=== PATIENT | male | born 1955 | race Caucasian/White ===

== ENCOUNTER → 2020-08-02 | Outpatient (CLI) | payer OTHER | LOC: LAB EV 14:23 → LAB 14:23 → LAB SHORT 14:23 | DX: R06.00 Dyspnea, unspecified (principal) | CPT/HCPCS: 83880 ==

== ENCOUNTER 2021-08-28 19:49 | Inpatient (IN) | payer OTHER ==
[~2021-08-28] VITALS: Ht 167.6 cm; Wt 102.7 kg
[2021-08-28 20:21] LABS: BASOPHILS ABSOLUTE AUTO 0.04 K/mm3 (0.00-0.23); BASOPHILS PERCENT AUTO 0 % (0-2); EOSINOPHILS ABSOLUTE AUTO 0.03 K/mm3 (0.00-0.68); EOSINOPHILS PERCENT AUTO 0 % (0-6); Hematocrit 37.3 % (37.0-53.0); Hemoglobin 12.5 g/dL (13.5-17.5); IMMATURE GRAN ABSOLUTE AUTO 0.11 K/mm3 (0.00-0.10); IMMATURE GRAN PERCENT AUTO 1 % (0-1); LYMPHOCYTES ABSOLUTE AUTO 0.86 K/mm3 (0.84-5.20); LYMPHOCYTES PERCENT AUTO 7 % (21-46); MONOCYTES ABSOLUTE AUTO 0.94 K/mm3 (0.16-1.47); MONOCYTES PERCENT AUTO 7 % (4-13); Mean Corpuscular HGB 30.6 pg (26.0-34.0); Mean Corpuscular HGB Conc 33.5 g/dL (31.5-36.5); Mean Corpuscular Volume 91 fL (80-100); NEUTROPHILS ABSOLUTE AUTO 10.65 K/mm3 (1.96-9.15); NEUTROPHILS PERCENT AUTO 84 % (41-73); Platelet Count 178 K/mm3 (150-400); RDW Coefficient Variation 14.6 % (11.7-14.2); Red Blood Cell Count 4.09 M/mm3 (4.30-5.90); White Blood Cell Count 12.63 K/mm3 (4.00-11.30)
[2021-08-28 20:43] LABS: Albumin, Blood 3.6 g/dL (3.4-5.0); Albumin/Globulin Ratio 0.8 (0.8-1.8); Bilirubin, Total 0.4 mg/dL (0.1-1.0); Bun/Creatinine Ratio 18.6 (12.0-20.0); Calcium, Blood 9.5 mg/dL (8.5-10.1); Creatinine, Blood 1.13 mg/dL (0.60-1.20); Globulin, Blood 4.3 g/dL (2.2-4.0); Potassium, Blood 4.1 mmol/L (3.5-5.5); Total Protein, Blood 7.9 g/dL (6.4-8.2)
[2021-08-29 01:32] LABS: Base Excess Venous -7.1 mmol/L; Bicarbonate Venous 18.4 mmol/L (24.0-30.0); PCO2 Venous 46.4 mmHg (38-42)
[2021-08-29 01:35] LABS: pH Blood Venous 7.25 (7.34-7.37)
[2021-08-29 02:37] LABS: Source, Urine Clean Catch
[2021-08-29 02:43] LABS: Bilirubin, Urine Neg (Neg); Blood, Urine 5+ (Neg); Glucose Qualitative, Urine Neg (Neg); Ketones, Urine 2+ (Neg); Leukocyte Esterase, Urine 1+ (Neg); Nitrite, Urine Pos (Neg); Protein, Urine 3+ (Neg); Urobilinogen, Urine NORM (Normal)
[2021-08-29] MEDS ORDERED: ALBU90OI INH (02:51)
[2021-08-29] MEDS ORDERED: ATOR40TA PO (02:52)
[2021-08-29] MEDS ORDERED: INCRUSE ELLIPTA INH (02:55)
[2021-08-29] MEDS ORDERED: LISI20 PO (02:55)
[2021-08-29] MEDS ORDERED: TAMS.4ER PO (02:56)
[2021-08-29 02:58] LABS: Appearance, Urine Hazy (Clear); Color, Urine Yellow (P-Yellow)
[2021-08-29] MEDS ORDERED: FLUTICASONE-SA1 EAC1 INH (02:58)
[2021-08-29 02:59] LABS: Amorphous Light (0-Heavy); Bacteria Many /hpf; Mucus Light (0-Heavy); Red Blood Cells, Urine 0-2 /hpf (0-2); Squamous Epithelial Cells Not Seen /hpf (Few); White Blood Cells, Urine 25-50 /hpf (0-5)
[2021-08-29 04:44] LABS: BASOPHILS ABSOLUTE AUTO 0.04 K/mm3 (0.00-0.23); BASOPHILS PERCENT AUTO 0 % (0-2); EOSINOPHILS PERCENT AUTO 0 % (0-6); Hematocrit 34.6 % (37.0-53.0); Hemoglobin 11.3 g/dL (13.5-17.5); Mean Corpuscular HGB 30.5 pg (26.0-34.0); Mean Corpuscular HGB Conc 32.7 g/dL (31.5-36.5); Mean Corpuscular Volume 94 fL (80-100); Mean Platelet Volume 10.9 fL (9.1-12.4); Platelet Count 143 K/mm3 (150-400); RDW Coefficient Variation 14.7 % (11.7-14.2); RDW Standard Deviation 50.4 fL (35.1-46.3); White Blood Cell Count 11.78 K/mm3 (4.00-11.30)
[2021-08-29 04:45] LABS: IMMATURE GRAN PERCENT AUTO 1 % (0-1); LYMPHOCYTES ABSOLUTE AUTO 1.41 K/mm3 (0.84-5.20); LYMPHOCYTES PERCENT AUTO 12 % (21-46); MONOCYTES ABSOLUTE AUTO 1.05 K/mm3 (0.16-1.47); MONOCYTES PERCENT AUTO 9 % (4-13); NEUTROPHILS ABSOLUTE AUTO 9.18 K/mm3 (1.96-9.15); NEUTROPHILS PERCENT AUTO 78 % (41-73)
[2021-08-29 05:02] LABS: Albumin/Globulin Ratio 0.8 (0.8-1.8); Bilirubin, Total 0.4 mg/dL (0.1-1.0); Bun/Creatinine Ratio 20.6 (12.0-20.0); Calcium, Blood 8.7 mg/dL (8.5-10.1); Creatinine, Blood 0.92 mg/dL (0.60-1.20); Potassium, Blood 3.9 mmol/L (3.5-5.5)
--- NOTE | 2021-08-29 05:35 | NUR ---
NEW ADMISSION FROM ER. PT REPORTS BEING VERY SOB W/EXERTION AND WHEN LAYING DOWN. PT ON 4L NC WITH GOOD SATURATIONS. PT WITH EX.WHEEZING HOWEVER CLEARED POST BREATHING TX. PT REPORTS THAT HE HAD NO RESIDUAL FROM [facility] "YEARS AGO." PT STATES THAT IN THE PAST 3 DAYS HE HAS FALLEN TWICE AND BOTH TIMES HIT THE CEMENT HURTING THIS RIGHT ARM. HE STATES THAT PRIOR TO 3 DAYS AGO HE HAD GOOD ARM MOVEMENT AND FUNCTION EQUAL TO HIS LEFT ARM. PT ARM IS NOTED TO BE PAINFUL WHEN MOVED OR TOUCHED. PT ALSO NOTED WITH HR IN THE 120S SINCE ADMISSION TO FLOOR. PER ER REPORT PT HAD BEEN IN 117s WHICH WAS IMPROVED FROM 140s. PT ALSO NOTED WITH A WOUND TO HIS LEFT GREAT TOE AREA. PT HAD BANDAID AND ONCE REMOVED THERE WAS PUSS NOTED, OPEN WOUND WITH WHITE CENTER. AREA IS WARM TOUCH, RED AND SWOLLEN. PIC IN CHART. DR. OBRIEN NOTIFIED REGARDING PT RECENT FALL AND CHANGE IN ARM MOBITLIY, UA RESULTS AND WOUND TO LEFT FOOT. DR. FLEMING MADE AWARE OF PT HR AND PER MD NO INTERVENTION AT THIS TIME. PT REPORTS LIVING IN [place] HOWEVER DUE TO RECENT HEALTH DECLINE HE STATES HE HAS LOST HIS HOUSING DUE TO NO BEING GINNY TO WORK.
[2021-08-29 10:15] LABS: Bicarbonate Venous 20.8 mmol/L (24.0-30.0); PCO2 Venous 34.1 mmHg (38-42); pH Blood Venous 7.38 (7.34-7.37)
[2021-08-29 10:19] LABS: Influenza A, PCR NEGATIVE (NEGATIVE); Influenza B, PCR NEGATIVE (NEGATIVE); Resp Syncytial Virus, PCR NEGATIVE (NEGATIVE); SARS-Cov-2 (COVID-19) PCR, MMC NEGATIVE (NEGATIVE)
--- NOTE | 2021-08-29 18:04 | NUR ---
SHIFT SUMMARY PT A&O X4 AND IN PLEASENT MOOD T/O SHIFT. PAIN MEDICATED PER EMAR. SURGEON IN TO SEE PT THIS SHIFT, SPLINT NOW IN PLACE. TOLERATING PO INTAKE WELL @ THIS TIME. DR. CHO, AUDITING CLERK IN TO SEE PT @ THIS TIME-PLAN TO ASPIRATE WOUND ON LLE GREAT TOE. TELE IN PLACE, AFLUTTER. CALL LIGHT W/IN REACH. VSS.
[2021-08-30 05:12] LABS: BASOPHILS ABSOLUTE AUTO 0.03 K/mm3 (0.00-0.23); BASOPHILS PERCENT AUTO 0 % (0-2); EOSINOPHILS ABSOLUTE AUTO 0.09 K/mm3 (0.00-0.68); EOSINOPHILS PERCENT AUTO 1 % (0-6); Hematocrit 31.4 % (37.0-53.0); Hemoglobin 10.3 g/dL (13.5-17.5); IMMATURE GRAN ABSOLUTE AUTO 0.05 K/mm3 (0.00-0.10); IMMATURE GRAN PERCENT AUTO 1 % (0-1); LYMPHOCYTES ABSOLUTE AUTO 1.37 K/mm3 (0.84-5.20); LYMPHOCYTES PERCENT AUTO 15 % (21-46); MONOCYTES PERCENT AUTO 10 % (4-13); Mean Corpuscular HGB 30.3 pg (26.0-34.0); Mean Corpuscular HGB Conc 32.8 g/dL (31.5-36.5); Mean Corpuscular Volume 92 fL (80-100); Mean Platelet Volume 10.6 fL (9.1-12.4); NEUTROPHILS ABSOLUTE AUTO 6.65 K/mm3 (1.96-9.15); NEUTROPHILS PERCENT AUTO 73 % (41-73); Platelet Count 138 K/mm3 (150-400); RDW Coefficient Variation 14.6 % (11.7-14.2); RDW Standard Deviation 49.3 fL (35.1-46.3); White Blood Cell Count 9.09 K/mm3 (4.00-11.30)
[2021-08-30 05:47] LABS: Albumin, Blood 2.6 g/dL (3.4-5.0); Albumin/Globulin Ratio 0.7 (0.8-1.8); Bilirubin, Total 0.4 mg/dL (0.1-1.0); Calcium, Blood 8.1 mg/dL (8.5-10.1); Creatinine, Blood 0.69 mg/dL (0.60-1.20); Globulin, Blood 3.9 g/dL (2.2-4.0); Potassium, Blood 3.6 mmol/L (3.5-5.5); Total Protein, Blood 6.5 g/dL (6.4-8.2); Uric Acid, Blood 6.8 mg/dL (3.5-7.2)
--- NOTE | 2021-08-30 06:28 | NUR ---
PT OXYGEN NOTED TO BE 82% WHILE ASLEEP ON RA. PT PLACED ON 2L NC WITH GOOD SATS MID 90s. PT WOUND TO LEFT FOOD DRAINING PUSS AFTER SEEN BY EXPLOSIVE SPECIALIST AND CHANGED NEEDED. CALL FROM TELE MONITOR STATING PT HAD 18 BEATS OF VTACH. AT THIS TIME WHEN TO ASSESS PT AND PT ONLY REPORTED DISCOMFORT FROM RIBS DUE TO RECENT FALL DENIED CHEST PAIN. PT STATING HIS IRREGULAR HR COULD BE FROM PHLEBOTOMY AT THIS TIME LAB WAS TRYING TO COLLECT LABS AND WAS NEEDING MORE THAN ONE STICK. MADE AWARE WITH ORDER FOR MG LAB DRAW. MG THIS MORNING 1.5 MD NOTIFIED WITH ORDER PER APR.
[2021-08-30 16:44] LABS: Vancomycin, Trough 15.8 ug/mL (5.0-10.0)
--- NOTE | 2021-08-30 18:24 | NUR ---
SHIFT SUMMARY PT A&O X4 AND IN PLEASENT MOOD T/O SHIFT. PT IV INFILTRATED-POWER GLIDE PLACED SHERMAN. LLE FOOT ULCER DRESSED TODAY, MONITORING FOR S/S OF INFECTION. PULSE PRESENT IN LUIS, SPLINT IN PLACE W/ SANDIE FOR WRIST FX. PAIN MEDICATED PER EMAR. CALL LIGHT W/IN REACH. VSS. TOLERATING PO INTAKE.
[2021-08-31 06:27] LABS: BASOPHILS ABSOLUTE AUTO 0.05 K/mm3 (0.00-0.23); BASOPHILS PERCENT AUTO 1 % (0-2); EOSINOPHILS PERCENT AUTO 5 % (0-6); Hematocrit 33.3 % (37.0-53.0); IMMATURE GRAN ABSOLUTE AUTO 0.03 K/mm3 (0.00-0.10); IMMATURE GRAN PERCENT AUTO 1 % (0-1); LYMPHOCYTES ABSOLUTE AUTO 1.01 K/mm3 (0.84-5.20); LYMPHOCYTES PERCENT AUTO 16 % (21-46); MONOCYTES ABSOLUTE AUTO 0.65 K/mm3 (0.16-1.47); MONOCYTES PERCENT AUTO 10 % (4-13); Mean Corpuscular HGB 30.6 pg (26.0-34.0); Mean Corpuscular Volume 93 fL (80-100); Mean Platelet Volume 10.7 fL (9.1-12.4); NEUTROPHILS ABSOLUTE AUTO 4.19 K/mm3 (1.96-9.15); NEUTROPHILS PERCENT AUTO 67 % (41-73); Platelet Count 161 K/mm3 (150-400); RDW Coefficient Variation 14.6 % (11.7-14.2); RDW Standard Deviation 49.1 fL (35.1-46.3); White Blood Cell Count 6.23 K/mm3 (4.00-11.30)
[2021-08-31 06:58] LABS: Albumin, Blood 2.8 g/dL (3.4-5.0); Albumin/Globulin Ratio 0.6 (0.8-1.8); Bilirubin, Total 0.5 mg/dL (0.1-1.0); Bun/Creatinine Ratio 17.8 (12.0-20.0); Calcium, Blood 8.8 mg/dL (8.5-10.1); Creatinine, Blood 0.68 mg/dL (0.60-1.20); Globulin, Blood 4.4 g/dL (2.2-4.0); Potassium, Blood 4.1 mmol/L (3.5-5.5); Total Protein, Blood 7.2 g/dL (6.4-8.2)
--- NOTE | 2021-08-31 07:14 | NUR ---
PT C/O PAIN NOT RELIEVED BY CURRENT REGIMEN. NOTIFIED WITH ORDERS PER APR. NO OTHER CHANGES NOTED THIS SHIFT.
--- NOTE | 2021-08-31 18:31 | NUR ---
DAYSHIFT SUMMARY Patient doing well today, worked with therapy, PT recommending rehab/SNF. PT instructed patient to use kamari-walker for ambulating. Changed dressing on left foot, moderate purulent drainage noted. This evening patient reported that he saw a cat in his room, pt told this RN that he has never used meth, and doesn't know why he would be "seeing cats". Vitals stable, IV ABX therapy admininsted. Tylenol & PRN oxycodone effective for pain mangement. Pain c/o pain in right arms & right ribs.
--- NOTE | 2021-09-01 02:59 | NUR ---
HEALTH AND SAFETY CONSULTANT SUMMARY REMAINS ON MED TELE, SINUS TACH, IN THE LOW TO MID HUNDREDS DEPENDING IF PT IS OUT OF BED AMBULATING. IV ANTIBIOTICS INFUSING ORDERED. HAS BEEN RESTING QUIETLY WITH OCCASIONAL INTERRUPTION. SLIGHTLY ELEVATED TEMP OTHERWISE VSS. ISOLATION PRECAUTIONS CONTINUE. CALL LIGHT IN REACH. RIGHT ARM CAST INTACT.
[2021-09-01 09:23] LABS: BASOPHILS ABSOLUTE AUTO 0.05 K/mm3 (0.00-0.23); BASOPHILS PERCENT AUTO 1 % (0-2); EOSINOPHILS ABSOLUTE AUTO 0.22 K/mm3 (0.00-0.68); EOSINOPHILS PERCENT AUTO 3 % (0-6); Hematocrit 36.3 % (37.0-53.0); IMMATURE GRAN ABSOLUTE AUTO 0.04 K/mm3 (0.00-0.10); IMMATURE GRAN PERCENT AUTO 1 % (0-1); LYMPHOCYTES ABSOLUTE AUTO 1.32 K/mm3 (0.84-5.20); LYMPHOCYTES PERCENT AUTO 19 % (21-46); MONOCYTES ABSOLUTE AUTO 0.63 K/mm3 (0.16-1.47); MONOCYTES PERCENT AUTO 9 % (4-13); Mean Corpuscular HGB 30.3 pg (26.0-34.0); Mean Corpuscular HGB Conc 33.1 g/dL (31.5-36.5); Mean Corpuscular Volume 92 fL (80-100); Mean Platelet Volume 10.1 fL (9.1-12.4); NEUTROPHILS ABSOLUTE AUTO 4.63 K/mm3 (1.96-9.15); NEUTROPHILS PERCENT AUTO 67 % (41-73); Platelet Count 205 K/mm3 (150-400); RDW Coefficient Variation 14.4 % (11.7-14.2); RDW Standard Deviation 48.3 fL (35.1-46.3); Red Blood Cell Count 3.96 M/mm3 (4.30-5.90); White Blood Cell Count 6.89 K/mm3 (4.00-11.30)
[2021-09-01 10:06] LABS: Vancomycin, Trough 14.5 ug/mL (5.0-10.0)
--- NOTE | 2021-09-01 18:07 | NUR ---
DAYSHIFT SUMMARY Patient doing well this shift, tachycardic with activity, saturations stable on room air, afebrile. Vancomycin ABX infused this shift. Patient worked with therapy, casemanagement assisting with DC planning. Left foot wound, scant purulent drainage noted.
--- NOTE | 2021-09-02 05:23 | NUR ---
SHIFT SUMMARY: PT A/OX3-4. IRRITABLE AT TIMES, MULTIPLE TIMES THROUGHOUT THE NIGHT PATIENT AWOKE STATING "I HAVE TO GET OUT OF THIS NIGHTMARE, THIS IS A BAD DREAM". UNSURE IF PATIENT WAS DESCRIBING FEELINGS OF HOSPITILIZATION OR WAS DISORIENTED TO PLACE/SITUATION. WHEN REORIENTATION WAS PROVIDED PT INFORMED HE WAS AWARE OF PLACE AND LOCATION. PT DID ATTEMPT TO GET OUT OF BED INDEPENDENTLY TO "WALK IN THE NGUY[place]", REORIENTED TO PT'S ABILITY AND CURRENT LIMITATIONS DUE TO RIGHT ARM SPLINT AND LEFT FOOT WOUND. PT VERY FRUSTRATED AT STAFF WHEN REQUESTING TO NOT GET OUT OF BED INDEPENDENTLY. PT ABLE TO USE URINAL INDEPENDENTLY. ADDITIONAL PAIN MEDICATIONS ORDERED PRN FOR PAIN RELIEF- REVIEW EMAR. RESPIRATORY PLACED 2L O2 NASAL CANNULA ON PT DUE TO DESATURATION, PT CONTINUES TO SELF REMOVE NASAL CANNULA THROUGHOUT THE NIGHT. BED ALARM REMAINS ACTIVATED, BED IN LOW POSITION, CALL BLANCAS AND BELONGINGS IN REACH.
--- NOTE | 2021-09-02 16:54 | NUR ---
SHIFT SUMMARY PT AxOx3. PLEASANT AND COOPERATIVE WITH CARE. PT WORKED WITH OCCUPATIONAL THERAPY THIS SHIFT. PT MADE NPO AFTER BREAKFAST. PT WAS GIVEN CLEAR LIQUIDS FOR BREAKFAST ONLY, PER DR ORDERS. PT TAKEN FOR SURGERY (I&D) ON L FOOT AT APPROX 1545. PT MEDICATED WITH TYLENOL FOR PAIN x1 WITH REPORTED RELIEF. PT IS CURRENTLY STILL IN SURGERY. DINNER TRAY ORDERED FOR WHEN HE RETURNS POST OP.
--- NOTE | 2021-09-02 17:03 | NUR ---
09/02/21 1703 Barbie Dias PT ON SCHEDULED ANTIBIOTICS
--- NOTE | 2021-09-02 17:30 | NUR ---
POST OP TRANSFER BACK TO MEDICAL FLOOR NOTE PT OUT OF SURGERY AND GIVEN REPORT TO TARA DUNCAN RN. PT TRANSFERRED BACK TO MEDICAL FLOOR AT APPROX 1730. POST OP VITALS STARTED AND DINNER TRAY PROVIDED TO PATIENT. PT STATES HE IS NOT HAVING ANY PAIN AT THIS TIME.
--- NOTE | 2021-09-03 05:26 | NUR ---
SHIFT SUMMARY: A/OX4, STANDBY ASSIST WITH SINGLE SIDED WALKER FOR AMBULATION. PT HAD DIFFICULTY SLEEPING TONIGHT DUE TO DISCOMFORT OF LEFT FOOT. PER PATIENT CONTINUED PAIN ADMINISTRATION BROUGHT PAIN DOWN TO 4/10 SCALE BUT DID NOT RELIEVE PAIN ENTIRELY. FENTANYL INCREASED TO 50 MG YET PT REPORTED NOT MUCH CHANGED IN PAIN RELIEF. ADMINISTERING OXYCODONE FOR BREAKTHROUGH PAIN RELIEF. BED IN LOW POSITION, CALL BLANCAS AND BELONGINGS IN REACH, BED ALARM ACTIVATED. NO ATTEMPTS TO GET OUT OF BED WITHOUT ASSISTANCE, CONTINUES TO CALL APPROPRIATELY. GOOD URINARY OUTPUT.
[2021-09-03 10:04] LABS: Creatinine, Blood 0.69 mg/dL (0.60-1.20); Vancomycin, Trough 24.7 ug/mL (5.0-10.0)
--- NOTE | 2021-09-03 17:27 | NUR ---
PATIENT A/OX4, CALM AND COOPERATIVE WITH CARE. WORKED WITH PT/OT TODAY AND WAS ABLE TO TRANSFER INTO A W/C AND WHEELED OUT IN THE HALLS. PAIN CONTROLLED WITH FENTANYL X1 AND SCHEDULED TYLENOL. VSS, ON RA. CONT BIOX D/C'D. NWB TO R ARM, SLPINT IN PLACE. NO WEUGHT BEARING PRECAUTIONS ORDERED TO L FOOT. DRESSING TO L FOOT REMAINS C/D/I. PATIENT ABLE TO MAKE NEEDS KNOWN. PLAN IS TO DC TO A [facility] FOR 30 DAYS AT DISCHARGE.
--- NOTE | 2021-09-04 02:34 | NUR ---
09/03/212114 Patient is alert and oriented. He is dangling at bedside. Pt has removed the cynthia wrap from his left foot, Large amounts of clean gauze remains, he states it was too tight with the cynthia wrap. Splint remains to RT arm. Patient watching TV, belongings and call light in reach.
[2021-09-04 06:21] LABS: Vancomycin, Random 7.6 ug/mL
--- NOTE | 2021-09-04 07:45 | NUR ---
Rn summary: Patient was medicated x2 for pain. Rt arm more painful this morning , elevated on pillow and pain med given. Pt did have an episode during the night when he woke up and was confused, thought someone had "stolen all the horses." and "tossed the house. Alert and oriented this am. Dangles. Call light in reach.
--- NOTE | 2021-09-04 16:28 | NUR ---
NO ACUTE CHANGES THIS SHIFT. AWAITING VISIT FROM PATIENT CONSUMER MARKETER FOR FOLLOW UP RECOMMENDATIONS. PATIENT WORKED WITH PT AND OT TODAY. FRANNY WALKER DELEIVERED TODAY. PAIN IMRPROVED PER PATIENT. TOLERATING REGULAR DIET. PATIENT REMOVED SANDIE WRAP TO L FOOT BECAUSE HE FELT IT WAS TOO TIGHT. PADDED KERLIX DRESSING REMAINS C/D/I. SPLINT REMAINS IN PLACE TO R ARM. PLAN IS TO D/C TO [facility] WHEN STABLE. RECEIVING IV ABX. POWERGLIDE TO SHERMAN WNL. NO NEW CONCERNS THIS SHIFT.
--- NOTE | 2021-09-05 02:14 | NUR ---
09/04/212029 Drsg is coming loose off of left foot. Part of kerlex removed and then clean kerlex reapplied with small stockingette over foot to hold it in place, pt did not tolerate cynthia wrap and he had removed it. No drainage noted. Patient painful after getting up to the bathroom, did walk using quad cane.
--- NOTE | 2021-09-05 06:33 | NUR ---
Rn summary: Patient rested, pt states rt ankle is hurting this am. He states it was the only part of his body that wasn't hurting before now. He is a little more grumpy this am. Patient is frustrated that the juke box mechanic has not come to see him so he can be discharged. Pt states his left big toe is "thumping". Medicated x2 with oxy 5mg with good relief. No other changes. Call light in reach.
[2021-09-05] MEDS ORDERED: AMOX-CLAV 875-1 EAC1 PO (14:54)
[2021-09-05] MEDS ORDERED: MELATONIN5 M1 PO (14:55)
[2021-09-05] MEDS ORDERED: METO25 PO (14:56)
[2021-09-05] MEDS ORDERED: ONDA4ODT MM (14:57)
[2021-09-05] MEDS ORDERED: SULTRIDS PO (14:58)
[2021-09-05] MEDS ORDERED: Norco 10-325 T1 EACH PO (14:58)
[2021-09-05] MEDS ORDERED: VISBIOME 112.51 EACH PO (14:59)
[2021-09-05] MEDS ORDERED: Clindamycin HC300 MG PO (15:00)
--- NOTE | 2021-09-05 15:20 | NUR ---
PT DISCHARGING TO ROOM AT [facility]. PT HAS BEEN AOX4 AND COOPERTIVE OF CARE. NO DISTESS NOTED AT THIS TIME. ALL PAPERWORK REVIEWED AND EDUCATIONAL MATERIAL SENT WITH PT. PT TO BE ESCORTED OUT TO RIDE AT 1530 S ENTRANCE VIA WHEELCHAIR. ALL PERSONAL BELONGINGS WITH PT.
== END 2021-09-05 15:27 | disposition home health service (06) | DRG 853 ==
LOC: ER 19:49 → MEDS 08-29 00:03
PROVIDERS: Emergency Medicine; Family Medicine; Pharmacist; Student in an Organized Health Care Education/Training Program; ADMIT Internal Medicine
PROC: 3E03329 Introduction of Other Anti-infective into Peripheral Vein, Percutaneous Approach (ICD-10-PCS; principal; 2021-08-29)
PROC: 0JBR0ZZ Excision of Left Foot Subcutaneous Tissue and Fascia, Open Approach (ICD-10-PCS; 2021-08-29)
PROC: 0Q9P0ZZ Drainage of Left Metatarsal, Open Approach (ICD-10-PCS; 2021-09-02)
PROC: 0JBR0ZZ Excision of Left Foot Subcutaneous Tissue and Fascia, Open Approach (ICD-10-PCS; 2021-09-02)
DX: A41.02 Sepsis due to Methicillin resistant Staphylococcus aureus (principal); G93.41 Metabolic encephalopathy; J96.01 Acute respiratory failure with hypoxia; S52.501A Unspecified fracture of the lower end of right radius, initial encounter for closed fracture; S52.601A Unspecified fracture of lower end of right ulna, initial encounter for closed fracture; L02.612 Cutaneous abscess of left foot; J44.1 Chronic obstructive pulmonary disease with (acute) exacerbation; L03.116 Cellulitis of left lower limb; I69.351 Hemiplegia and hemiparesis following cerebral infarction affecting right dominant side; I48.92 Unspecified atrial flutter; L97.529 Non-pressure chronic ulcer of other part of left foot with unspecified severity; E66.01 Morbid (severe) obesity due to excess calories; F17.210 Nicotine dependence, cigarettes, uncomplicated; I11.0 Hypertensive heart disease with heart failure; I50.9 Heart failure, unspecified; I48.91 Unspecified atrial fibrillation; M1A.9XX1 Chronic gout, unspecified, with tophus (tophi); R65.20 Severe sepsis without septic shock; Z20.822 Contact with and (suspected) exposure to COVID-19; I35.1 Nonrheumatic aortic (valve) insufficiency; I25.5 Ischemic cardiomyopathy; I25.10 Atherosclerotic heart disease of native coronary artery without angina pectoris; S20.213A Contusion of bilateral front wall of thorax, initial encounter; Z59.00 Homelessness unspecified; Z79.2 Long term (current) use of antibiotics; Z79.891 Long term (current) use of opiate analgesic; Z79.899 Other long term (current) drug therapy; Z79.51 Long term (current) use of inhaled steroids; Z98.890 Other specified postprocedural states; Z68.35 Body mass index [BMI] 35.0-35.9, adult; Z91.81 History of falling; W18.30XA Fall on same level, unspecified, initial encounter
CPT/HCPCS: 0241U; 36415; 70450; 71046; 73060; 73090; 80053; 80202; 81001; 82565; 82803; 83605; 83735; 84145; 84550; 85025; 85651; 87040; 87071; 87075; 87086; 87147; 87205; 88305; 89060; 93005; 93010; 94640; 94664; 94760; 94762; 96365; 96366; 96375; 97110; 97116; 97162; 97166; 97530; 97535; 99285-25; A9270; J0295; J0456; J0696; J1170; J1650; J2001; J2250; J2704; J3010; J3370; J3475; J7030; J7040; J7050; J7060; J7512

== ENCOUNTER → 2021-08-28 | Outpatient (CLI) | payer OTHER ==
[~2021-08-28] MED LIST: ALBU90OI INH; AMOX-CLAV 875-1 EAC1 PO; ATOR40TA PO; Clindamycin HC300 MG PO; FLUTICASONE-SA1 EAC1 INH; INCRUSE ELLIPTA INH; LISI20 PO; MELATONIN5 M1 PO; METO25 PO; Norco 10-325 T1 EACH PO; ONDA4ODT MM; SULTRIDS PO; TAMS.4ER PO; VISBIOME 112.51 EACH PO
[2021-08-28 08:29] LABS: BASOPHILS ABSOLUTE AUTO 0.05 K/mm3 (0.00-0.23); BASOPHILS PERCENT AUTO 0 % (0-2); EOSINOPHILS ABSOLUTE AUTO 0.01 K/mm3 (0.00-0.68); EOSINOPHILS PERCENT AUTO 0 % (0-6); Hematocrit 38.1 % (37.0-53.0); Hemoglobin 12.7 g/dL (13.5-17.5); IMMATURE GRAN PERCENT AUTO 1 % (0-1); LYMPHOCYTES ABSOLUTE AUTO 0.72 K/mm3 (0.84-5.20); LYMPHOCYTES PERCENT AUTO 4 % (21-46); MONOCYTES ABSOLUTE AUTO 1.05 K/mm3 (0.16-1.47); MONOCYTES PERCENT AUTO 6 % (4-13); Mean Corpuscular HGB 30.8 pg (26.0-34.0); Mean Corpuscular HGB Conc 33.3 g/dL (31.5-36.5); Mean Corpuscular Volume 93 fL (80-100); Mean Platelet Volume 10.9 fL (9.1-12.4); NEUTROPHILS ABSOLUTE AUTO 15.26 K/mm3 (1.96-9.15); NEUTROPHILS PERCENT AUTO 88 % (41-73); Platelet Count 185 K/mm3 (150-400); RDW Coefficient Variation 14.5 % (11.7-14.2); RDW Standard Deviation 48.7 fL (35.1-46.3); Red Blood Cell Count 4.12 M/mm3 (4.30-5.90); White Blood Cell Count 17.29 K/mm3 (4.00-11.30)
[2021-08-28 08:38] LABS: Albumin, Blood 3.8 g/dL (3.4-5.0); Albumin/Globulin Ratio 0.9 (0.8-1.8); Bilirubin, Total 0.4 mg/dL (0.1-1.0); Bun/Creatinine Ratio 13.4 (12.0-20.0); Creatinine, Blood 1.19 mg/dL (0.60-1.20); Globulin, Blood 4.2 g/dL (2.2-4.0); Potassium, Blood 4.5 mmol/L (3.5-5.5)
== END | disposition home or self-care (01) ==
LOC: LAB SHORT 08:23 → LAB 08:23
PROVIDERS: General Practice
DX: L03.116 Cellulitis of left lower limb (principal); L97.529 Non-pressure chronic ulcer of other part of left foot with unspecified severity
CPT/HCPCS: 80053; 85025; 87070; 87075; 87076; 87077; 87147; 87186; 87205

== ENCOUNTER → 2021-09-16 | Outpatient (CLI) | payer OTHER | END | disposition home or self-care (01) | LOC: LAB SHORT 10:46 → LAB 10:46 | DX: T81.40XA Infection following a procedure, unspecified, initial encounter (principal) | CPT/HCPCS: 87070; 87075; 87076; 87205 ==

== ENCOUNTER 2021-09-26 15:09 | Emergency (ER) | payer OTHER ==
[~2021-09-26] VITALS: Ht 165.1 cm; Wt 98.4 kg
== END 2021-09-26 19:47 | disposition left against medical advice (07) ==
LOC: ER 15:09
DX: M79.601 Pain in right arm (principal); Z53.21 Procedure and treatment not carried out due to patient leaving prior to being seen by health care provider
CPT/HCPCS: 73100

== ENCOUNTER → 2021-11-20 | Outpatient (CLI) | payer OTHER | END | disposition home or self-care (01) | LOC: LAB SHORT 11:00 → LAB 11:00 | DX: S91.302A Unspecified open wound, left foot, initial encounter (principal) | CPT/HCPCS: 87070; 87075; 87077; 87186; 87205 ==

== ENCOUNTER → 2022-04-10 | Outpatient (CLI) | payer OTHER ==
[2022-04-10 18:22] LABS: BASOPHILS ABSOLUTE AUTO 0.05 K/mm3 (0.00-0.23); BASOPHILS PERCENT AUTO 1 % (0-2); EOSINOPHILS ABSOLUTE AUTO 0.21 K/mm3 (0.00-0.68); EOSINOPHILS PERCENT AUTO 3 % (0-6); Hematocrit 36.3 % (37.0-53.0); Hemoglobin 11.7 g/dL (13.5-17.5); IMMATURE GRAN ABSOLUTE AUTO 0.03 K/mm3 (0.00-0.10); IMMATURE GRAN PERCENT AUTO 1 % (0-1); LYMPHOCYTES ABSOLUTE AUTO 1.85 K/mm3 (0.84-5.20); LYMPHOCYTES PERCENT AUTO 28 % (21-46); MONOCYTES ABSOLUTE AUTO 0.55 K/mm3 (0.16-1.47); MONOCYTES PERCENT AUTO 8 % (4-13); Mean Corpuscular HGB 28.5 pg (26.0-34.0); Mean Corpuscular HGB Conc 32.2 g/dL (31.5-36.5); Mean Corpuscular Volume 88 fL (80-100); Mean Platelet Volume 10.5 fL (9.1-12.4); NEUTROPHILS ABSOLUTE AUTO 3.96 K/mm3 (1.96-9.15); NEUTROPHILS PERCENT AUTO 59 % (41-73); Platelet Count 294 K/mm3 (150-400); RDW Coefficient Variation 19.7 % (11.7-14.2); RDW Standard Deviation 63.4 fL (35.1-46.3); Red Blood Cell Count 4.11 M/mm3 (4.30-5.90); White Blood Cell Count 6.65 K/mm3 (4.00-11.30)
[2022-04-10 19:06] LABS: Bun/Creatinine Ratio 29.5 (12.0-20.0); Calcium, Blood 9.6 mg/dL (8.5-10.1); Creatinine, Blood 0.58 mg/dL (0.60-1.20); Percent Saturation 12.8 % (20.0-50.0); Potassium, Blood 4.2 mmol/L (3.5-5.5); Uric Acid, Blood 6.3 mg/dL (3.5-7.2)
== END | disposition home or self-care (01) ==
LOC: LAB SHORT 15:43
PROVIDERS: Nurse Practitioner Family
DX: R55 Syncope and collapse (principal); D64.9 Anemia, unspecified; M10.9 Gout, unspecified
CPT/HCPCS: 80048; 82728; 83540; 83550; 84550; 85025

== ENCOUNTER 2022-05-05 08:45 | Inpatient (IN) | payer OTHER ==
[~2022-05-05] VITALS: Ht 167.6 cm; Wt 74.0 kg
[2022-05-05 09:21] LABS: BASOPHILS ABSOLUTE AUTO 0.02 K/mm3 (0.00-0.23); BASOPHILS PERCENT AUTO 0 % (0-2); EOSINOPHILS ABSOLUTE AUTO 0.19 K/mm3 (0.00-0.68); EOSINOPHILS PERCENT AUTO 3 % (0-6); Hematocrit 33.3 % (37.0-53.0); Hemoglobin 11.3 g/dL (13.5-17.5); IMMATURE GRAN ABSOLUTE AUTO 0.01 K/mm3 (0.00-0.10); IMMATURE GRAN PERCENT AUTO 0 % (0-1); LYMPHOCYTES ABSOLUTE AUTO 1.64 K/mm3 (0.84-5.20); LYMPHOCYTES PERCENT AUTO 25 % (21-46); MONOCYTES PERCENT AUTO 8 % (4-13); Mean Corpuscular HGB 29.5 pg (26.0-34.0); Mean Corpuscular HGB Conc 33.9 g/dL (31.5-36.5); Mean Corpuscular Volume 87 fL (80-100); Mean Platelet Volume 10.5 fL (9.1-12.4); NEUTROPHILS ABSOLUTE AUTO 4.09 K/mm3 (1.96-9.15); NEUTROPHILS PERCENT AUTO 63 % (41-73); Platelet Count 238 K/mm3 (150-400); RDW Standard Deviation 60.9 fL (35.1-46.3); Red Blood Cell Count 3.83 M/mm3 (4.30-5.90); White Blood Cell Count 6.45 K/mm3 (4.00-11.30)
[2022-05-05 09:45] LABS: Albumin, Blood 3.6 g/dL (3.4-5.0); Albumin/Globulin Ratio 0.8 (0.8-1.8); Bilirubin, Total 0.3 mg/dL (0.1-1.0); Bun/Creatinine Ratio 31.4 (12.0-20.0); Calcium, Blood 10.1 mg/dL (8.5-10.1); Creatinine, Blood 0.77 mg/dL (0.60-1.20); Globulin, Blood 4.3 g/dL (2.2-4.0); Potassium, Blood 4.7 mmol/L (3.5-5.5); Total Protein, Blood 7.9 g/dL (6.4-8.2)
--- NOTE | 2022-05-05 13:27 | NUR ---
PT ARRIVED TO UNIT FROM ER, ABLE TO STAND AND TRANSFER. R 3RD TOE BLACK ON THE MEDIAL SIDE WITH AN OPEN ULCER WHERE IT TOUCHES THE 2ND TOE. REDNESS EXTENDING UP THE FOOT FROM THAT TOE. R LEG IS EDEMETOUS COMPARED TO THE LEFT. PT STATES HIS LEGS ARE NORMAL FOR HIM. PT PLEASANT AND COOPERATIVE REPORTS LOSING HIS INHALER THIS MORNING AT THE [place], ENDORSES SOME SOB.
--- NOTE | 2022-05-05 14:14 | NUR ---
DR. HELM IN TO SEE PATIENT. PLAN IS FOR ANGIOGRAM TODAY. PT AWARE AND AGREEABLE. PT NPO AT THIS TIME.
--- NOTE | 2022-05-05 16:12 | NUR ---
PT LEFT FOR FACILITIES PLANNER AT THIS TIME. TELE NOTIFIED.
--- NOTE | 2022-05-05 16:13 | NUR ---
SHIFT SUMMARY PT HAS BEEN RESTING IN BED SINCE ARRIVAL TO FLOOR. NPO SINCE ARRIVAL WELL. DENIES NEEDS, DENIES PAIN.
--- NOTE | 2022-05-05 18:38 | NUR ---
TRANSFER NOTE PT FROM ADAPTED PHYSICAL EDUCATION TEACHER AT APPROX 1820, PT APPEARS TO BE SLEEPING. PT LEFT GROIN SITE HAS ANGIOSEAL IN PLACE, SOFT, NONTENDER, NO BLEEDING, BRUISING OR HEMATOMA NOTED. RIGHT TIBAL SITE HAS JAKE DRESSING IN PLACE, NO BLEEDING, OR HEMATOMA NOTED. PT EDUCATED TO KEEP HEAD DOWN, AND LYING FLAT, WILL SLOWLY SIT UP OVER THE NEXT COUPLE OF HOURS. PT CONTINUES TO ATTEMPTED TO LIFT HEAD. PT HAS WOUND TO LEFT 3RD TOE, BLACK ESCHAR NOTED, PLANS FOR POSSIBLE AMPUTATION TOMORROW, CONSULT CONFIRMED WITH DR SNIDER THIS EVENING. WOUND TO HEEL NOTED. VSS. WILL CONTINUE TO MONITOR.
[2022-05-06 04:22] LABS: Hematocrit 30.6 % (37.0-53.0); Hemoglobin 10.2 g/dL (13.5-17.5); Mean Corpuscular HGB 29.3 pg (26.0-34.0); Mean Corpuscular HGB Conc 33.3 g/dL (31.5-36.5); Mean Corpuscular Volume 88 fL (80-100); Mean Platelet Volume 10.4 fL (9.1-12.4); Platelet Count 205 K/mm3 (150-400); RDW Coefficient Variation 19.4 % (11.7-14.2); RDW Standard Deviation 62.6 fL (35.1-46.3); Red Blood Cell Count 3.48 M/mm3 (4.30-5.90); White Blood Cell Count 5.56 K/mm3 (4.00-11.30)
--- NOTE | 2022-05-06 04:40 | NUR ---
SHIFT SUMMARY: PT ALERT AND ORIENTED X4, ABLE TO FOLLOW COMMANDS AND MAKE NEEDS KNOWN. BP AND HR STABLE, AFEBRILE, SATS >95% ON 2L NC. PT POST ANGIO, FEMORAL AND HEEL SITE OVERALL C/D/I, NO HEMATOMA OR BRUISING NOTED. PLAN FOR POSSIBLE TOE AMPUTATION TODAY, NPO SINCE 0000. PT SBA, ABLE TO USE URINAL AT BEDSIDE. APPROX 800 ML OF URINARY OUTPUT DURING THE NIGHT, NO BM. ABLE TO REPOS IND IN BED. BED IN LOW, CALL LIGHT IN REACH, WILL REPORT TO ONCOMING RN.
[2022-05-06 04:45] LABS: Bun/Creatinine Ratio 24.2 (12.0-20.0); Calcium, Blood 9.1 mg/dL (8.5-10.1); Creatinine, Blood 0.78 mg/dL (0.60-1.20); Magnesium, Blood 1.6 mg/dL (1.6-2.4); Potassium, Blood 4.7 mmol/L (3.5-5.5)
--- NOTE | 2022-05-06 09:55 | NUR ---
AM NOTE: PATIENT ALERT AND ORIENTED. VERY GOOFY AND LOUD. JOKING AROUND WITH STAFF AND IN GOOD SPIRITS. WEARING GLASSES. PERRLA. USES CANE AT BASELINE. STATES HE HAS SOME NUMBNESS/TINGLING TO BILATERA HANDS FROM CARPAL TUNNEL. TELE SHOWING SR/ST WITH HR 90-110'S. DENIES CHEST PAIN/PRESSURE. BP ON SOFTER SIDE THIS MORNING. PPP. FAINT PULSE TO RIGHT PEDAL. RECENT REVASC WITH LEFT FEMORAL AND RIGHT HEEL SITES. COMPLAINS OF RIGHT 3RD TOE PAIN AND LEFT HEEL PAIN. DENIES NEED FOR PO PAIN MEDICATION. CALL PLACED TO DR. SNIDER THIS MORNING. PLAN FOR DR. SNIDER TO COME ASSESS PATIENT LATER THIS AFTERNOON. NO TOE AMPUTATION PLANNED FOR TODAY. PATIENT OKAY TO EAT AND HAVE MORNING DOSE OF LOVENOX. PATIENT UPDATED. NPO AT MIDNIGHT. LUNGS SOUNDING CLEAR, ON ROOM AIR SATING HIGH 90'S. DENIES SOB. USING URINAL AT BEDSIDE. EATING BREAKFAST AT THIS TIME.
--- NOTE | 2022-05-06 18:12 | NUR ---
SHIFT SUMMARY: NO ACUTE CHANGES. SEE PREVIOUS NOTE. PATIENT REMAINS ALERT AND ORIENTED. ON ROOM AIR SATING ABOVE 95%. NO EVENTS IN TELE THIS AM. SURGICAL STATUS WITH NO TELE AT THIS TIME. BP REMAINS SOFT. PATIENT DENIES ANY DIZZINESS. NO CHANGES TO RIGHT 3RD TOE. REMAINS DARK BLACK/PURPLE. WITH SURROUNDING TISSUE SLIGHTLY RED. PATIENT MEDICATED X1 FOR RIGHT TOE PAIN. DR. SNIDER IN TO SEE PATIENT. PLAN FOR PATIENT TO FOLLOW UP OUTPATIENT WITH PODIATRY, PATIENT ALREADY HAS APPOINTMENT ON May. DR. HUGHES AND RESIDENT TEAM UPDATE ON DR. ISN VISIT.
[2022-05-07 03:49] LABS: BASOPHILS ABSOLUTE AUTO 0.04 K/mm3 (0.00-0.23); BASOPHILS PERCENT AUTO 1 % (0-2); EOSINOPHILS ABSOLUTE AUTO 0.15 K/mm3 (0.00-0.68); EOSINOPHILS PERCENT AUTO 2 % (0-6); IMMATURE GRAN ABSOLUTE AUTO 0.02 K/mm3 (0.00-0.10); IMMATURE GRAN PERCENT AUTO 0 % (0-1); LYMPHOCYTES ABSOLUTE AUTO 1.94 K/mm3 (0.84-5.20); LYMPHOCYTES PERCENT AUTO 29 % (21-46); MONOCYTES ABSOLUTE AUTO 0.68 K/mm3 (0.16-1.47); MONOCYTES PERCENT AUTO 10 % (4-13); Mean Corpuscular HGB 29.7 pg (26.0-34.0); Mean Corpuscular HGB Conc 33.3 g/dL (31.5-36.5); Mean Corpuscular Volume 89 fL (80-100); Mean Platelet Volume 9.7 fL (9.1-12.4); NEUTROPHILS ABSOLUTE AUTO 3.83 K/mm3 (1.96-9.15); NEUTROPHILS PERCENT AUTO 58 % (41-73); Platelet Count 202 K/mm3 (150-400); RDW Coefficient Variation 19.7 % (11.7-14.2); RDW Standard Deviation 64.1 fL (35.1-46.3); Red Blood Cell Count 3.37 M/mm3 (4.30-5.90); White Blood Cell Count 6.66 K/mm3 (4.00-11.30)
[2022-05-07 04:10] LABS: Bun/Creatinine Ratio 33.7 (12.0-20.0); Calcium, Blood 9.3 mg/dL (8.5-10.1); Creatinine, Blood 0.68 mg/dL (0.60-1.20); Potassium, Blood 4.6 mmol/L (3.5-5.5)
--- NOTE | 2022-05-07 06:00 | NUR ---
SHIFT SUMMARY PATIENT ALERT AND ORIENTED X3, CAN BE FORGETFUL, TALKS TO HIMSELF FREQUENTLY. VITAL SIGNS STABLE. MEDICATED PER EMAR FOR PAIN IN HIS R FOOT. HAD NO COMPLAINTS OF CHEST PAIN OR SHORTNESS OF BREATH. NO ACUTE ISSUES NOTED OVERNIGHT. CALL LIGHT WITHIN REACH.
--- NOTE | 2022-05-07 08:43 | NUR ---
AM NOTE: PATIENT ALERT AND ORIENTED. ANXIOUS TO GO HOME. ON ROOM AIR SATING ABOVE 95%. NO TELE. HR 110'S. BP STABLE. DENIES CHEST PAIN/PRESSURE. PPP. LEFT FEMORAL AND RIGHT HEEL SITES WNL. RIGHT FOOT REDNESS WITH 3RD TOE BLACK/PURPLE IN COLOR. BLACK LINE RECEDING WITH SOME GRAYNESS NOTED TOWARD BASE OF TOE. PATIENT COMPLAINS OF PAIN THIS MORNING, MEDICATED PER EMAR. PAIN IMPROVED FROM YESTERDAY. EATING AND VOIDING WNL. USING CANE AT BASELINE. CALL LIGHT IN REACH. WILL CONTINUE TO MONITOR.
[2022-05-07] MEDS ORDERED: OXAYDO5 M1 PO (10:33)
[2022-05-07] MEDS ORDERED: CEPH500 PO (10:34)
[2022-05-07] MEDS ORDERED: DULERA 200 MCG-13 GM INH (10:35)
[2022-05-07] MEDS ORDERED: Acetaminophen325 M1 PO (10:36)
[2022-05-07] MEDS ORDERED: JUVEN PACKET1 EAC3 PO (10:36)
--- NOTE | 2022-05-07 11:35 | NUR ---
DISCHARGE: NO ACUTE CHANGES. PATIENT DISCHARGE WNL. VITAL SIGNS REMAIN STABLE. DISCHARGE INSTRUCTIONS REVIEWED WITH PATIENT AND PATIENT ABLE TO TEACH BACK ALL INSTRUCTIONS. THIS RN EDUCATED ON NEW MEDICATIONS, DOSE CHANGES, AND FREQUENCY CHANGES. WE DISCUSSED ALL 3 FOLLOW UP APPOINTMENTS AND SIGNS AND SYMPTOMS OF WHEN TO RETURN TO ER. IV REMOVED WNL. PATIENT LEFT UNIT VIA WHEELCHAIR WITH ALL PERSONAL BELONGINGS. PATIENT TO DEPARTMENT ADMINISTRATOR [facility] MEDICATIONS FROM [facility]. PAIN MEDICATION PRESCRIPTION GIVEN TO PATIENT AND COPY IN CHART.
== END 2022-05-07 11:32 | disposition home or self-care (01) | DRG 253 ==
LOC: ER 08:45 → PCU 11:42 → MEDS 11:42 → SURS 12:56 → PCU 17:33
PROVIDERS: Anesthesiology; Family Medicine; Nurse Practitioner Acute Care; ADMIT Student in an Organized Health Care Education/Training Program
PROC: 04FK3ZZ Fragmentation of Right Femoral Artery, Percutaneous Approach (ICD-10-PCS; principal; 2022-05-05)
PROC: 04FM3ZZ Fragmentation of Right Popliteal Artery, Percutaneous Approach (ICD-10-PCS; 2022-05-05)
PROC: B44HZZ3 Ultrasonography of Bilateral Lower Extremity Arteries, Intravascular (ICD-10-PCS; 2022-05-05)
DX: I70.261 Atherosclerosis of native arteries of extremities with gangrene, right leg (principal); E87.1 Hypo-osmolality and hyponatremia; L03.115 Cellulitis of right lower limb; I50.32 Chronic diastolic (congestive) heart failure; R94.39 Abnormal result of other cardiovascular function study; J44.9 Chronic obstructive pulmonary disease, unspecified; I11.0 Hypertensive heart disease with heart failure; I70.202 Unspecified atherosclerosis of native arteries of extremities, left leg; I48.0 Paroxysmal atrial fibrillation; F17.210 Nicotine dependence, cigarettes, uncomplicated; I25.5 Ischemic cardiomyopathy; I25.10 Atherosclerotic heart disease of native coronary artery without angina pectoris; M10.9 Gout, unspecified; R73.03 Prediabetes; L97.519 Non-pressure chronic ulcer of other part of right foot with unspecified severity; Z98.890 Other specified postprocedural states; Z79.899 Other long term (current) drug therapy; Z59.00 Homelessness unspecified; Z79.51 Long term (current) use of inhaled steroids; Z86.73 Personal history of transient ischemic attack (TIA), and cerebral infarction without residual deficits; Z79.02 Long term (current) use of antithrombotics/antiplatelets; Z79.811 Long term (current) use of aromatase inhibitors; Z79.52 Long term (current) use of systemic steroids
CPT/HCPCS: 36415; 73620; 75625; 75716; 75774; 76937; 80048; 80053; 83735; 83930; 83935; 84295; 84300; 84443; 85025; 85027; 94640; 94664; 94762; 96374; 99152; 99153; 99285-25; A9270; C1725; C1760; C1769; C1887; C1894; C9764; J0690; J1644; J1650; J2250; J3010; J7030; J7050; Q9967

== ENCOUNTER 2022-06-08 09:01 | Inpatient (IN) | payer OTHER ==
[~2022-06-08] VITALS: Ht 167.6 cm; Wt 79.3 kg
[~2022-06-08 09:01] MED LIST changes: +Acetaminophen325 M1 PO; +CEPH500 PO; +DULERA 200 MCG-13 GM INH; +JUVEN PACKET1 EAC3 PO; +OXAYDO5 M1 PO
[2022-06-08 10:29] LABS: BASOPHILS ABSOLUTE AUTO 0.03 K/mm3 (0.00-0.23); BASOPHILS PERCENT AUTO 1 % (0-2); EOSINOPHILS ABSOLUTE AUTO 0.14 K/mm3 (0.00-0.68); EOSINOPHILS PERCENT AUTO 3 % (0-6); Hematocrit 31.2 % (37.0-53.0); Hemoglobin 10.4 g/dL (13.5-17.5); IMMATURE GRAN ABSOLUTE AUTO 0.01 K/mm3 (0.00-0.10); IMMATURE GRAN PERCENT AUTO 0 % (0-1); LYMPHOCYTES PERCENT AUTO 23 % (21-46); MONOCYTES ABSOLUTE AUTO 0.36 K/mm3 (0.16-1.47); MONOCYTES PERCENT AUTO 7 % (4-13); Mean Corpuscular HGB 31.4 pg (26.0-34.0); Mean Corpuscular HGB Conc 33.3 g/dL (31.5-36.5); Mean Corpuscular Volume 94 fL (80-100); Mean Platelet Volume 9.4 fL (9.1-12.4); NEUTROPHILS PERCENT AUTO 66 % (41-73); Platelet Count 231 K/mm3 (150-400); RDW Coefficient Variation 18.6 % (11.7-14.2); RDW Standard Deviation 65.4 fL (35.1-46.3); Red Blood Cell Count 3.31 M/mm3 (4.30-5.90); White Blood Cell Count 4.84 K/mm3 (4.00-11.30)
[2022-06-08 10:53] LABS: International Normalized Ratio 0.98; Prothrombin Time Results 10.3 Sec (9.7-11.5)
[2022-06-08 10:58] LABS: Bilirubin, Total 0.2 mg/dL (0.1-1.0); Bun/Creatinine Ratio 24.3 (12.0-20.0); Calcium, Blood 9.5 mg/dL (8.5-10.1); Creatinine, Blood 0.7 mg/dL (0.60-1.20); Globulin, Blood 4.2 g/dL (2.2-4.0); Total Protein, Blood 8.2 g/dL (6.4-8.2)
[2022-06-08 12:52] LABS: Source, Urine Clean Catch
[2022-06-08 12:54] LABS: Appearance, Urine Clear (Clear); Bilirubin, Urine Neg (Neg); Blood, Urine Neg (Neg); Color, Urine Yellow (P-Yellow); Glucose Qualitative, Urine Neg (Neg); Ketones, Urine Neg (Neg); Leukocyte Esterase, Urine Neg (Neg); Nitrite, Urine Neg (Neg); Protein, Urine 1+ (Neg); Specific Gravity, Urine 1.015 (1.003-1.022); Urobilinogen, Urine NORM (Normal)
[2022-06-08 14:43] LABS: Base Excess Venous -10.1 mmol/L; Bicarbonate Venous 17.1 mmol/L (24.0-30.0); PCO2 Venous 32.3 mmHg (38-42); pH Blood Venous 7.31 (7.34-7.37)
[2022-06-08 17:19] VITALS: BP 114/73
[2022-06-08 17:50] LABS: Base Excess Venous -8.9 mmol/L; Bicarbonate Venous 17.7 mmol/L (24.0-30.0); PCO2 Venous 37.5 mmHg (38-42); pH Blood Venous 7.29 (7.34-7.37)
--- NOTE | 2022-06-08 18:24 | NUR ---
ADMIT PT ADMITTED TO ROOM 311. ORIENTED TO ROOM AND UNIT. CALL LIGHT IN REACH. PLACED IN ISOLATION PRECAUTION FOR CONTACT AND ENTERIC PRECAUTIONS. VS REVIEWED. WOUND CARE COMPLETED AND PHOTOS TAKEN & PLACED IN CHART. PT DENIES CP/PRESSURE AND DENIES SOB AT THIS TIME.
--- NOTE | 2022-06-08 19:03 | NUR ---
PHYSICIAN CONTACT JUMA BONILLA CONTACTED ABOUT TREATMENT FOR PTS HYPONATREMIA. JUMA STATED HE WILL REACH OUT OF ADMITTING PHYSICIAN AND PLACE ORDERS IF NEEDED AFTER REVIEWING PTS CHART.
[2022-06-08] MEDS ORDERED: METO100ER PO (19:37)
[2022-06-08] MEDS ORDERED: FLUT1DIS8 INH (19:37)
[2022-06-08] MEDS ORDERED: ALLO100 PO (19:38)
[2022-06-08] MEDS ORDERED: CLOP75 PO (19:39)
[2022-06-08] MEDS ORDERED: LOSA25 PO (19:39)
[2022-06-08] MEDS ORDERED: BACTRIM DS TAB1 EAC6 PO (19:39)
[2022-06-08] MEDS ORDERED: COLCHICINE0.6 MG PO (19:40)
[2022-06-08] MEDS ORDERED: CHLO25B PO (19:41)
[2022-06-08 19:50] VITALS: BP 105/60
[2022-06-09 00:28] LABS: Campylobacter Sp Not Detected (NOT DETECT)
[2022-06-09 00:29] LABS: Adenovirus F 40/41 Not Detected (NOT DETECT); Astrovirus Not Detected (NOT DETECT); Cryptosporidium Not Detected (NOT DETECT); Cyclospora Cayetanensis Not Detected (NOT DETECT); E. Coli O157 Not Detected (NOT DETECT); Entamoeba Histolytica Not Detected (NOT DETECT); Enteroaggregative E. coli-EAEC Not Detected (NOT DETECT); Enteropathogenic E. coli-EPEC Not Detected (NOT DETECT); Enterotoxigenic E. coli-ETEC Not Detected (NOT DETECT); Giardia Lamblia Not Detected (NOT DETECT); Norovirus GI/GII Not Detected (NOT DETECT); Plesiomonas Shigelloides Not Detected (NOT DETECT); Rotavirus A Not Detected (NOT DETECT); Salmonella Sp Not Detected (NOT DETECT); Sapovirus Not Detected (NOT DETECT); Shiga Toxin-prod E. coli-STEC Not Detected (NOT DETECT); Shigella/Enteroin E. coli-EIEC Not Detected (NOT DETECT); Vibrio Cholerae Not Detected (NOT DETECT); Vibrio Sp Not Detected (NOT DETECT); Yersinia Enterocolitica Not Detected (NOT DETECT)
[2022-06-09 04:43] VITALS: BP 108/68
[2022-06-09 04:53] LABS: Base Excess Venous -8.4 mmol/L; Bicarbonate Venous 18.2 mmol/L (24.0-30.0); PCO2 Venous 35.5 mmHg (38-42); pH Blood Venous 7.31 (7.34-7.37)
[2022-06-09 05:18] LABS: BASOPHILS ABSOLUTE AUTO 0.05 K/mm3 (0.00-0.23); BASOPHILS PERCENT AUTO 1 % (0-2); EOSINOPHILS ABSOLUTE AUTO 0.21 K/mm3 (0.00-0.68); EOSINOPHILS PERCENT AUTO 5 % (0-6); Hematocrit 28.4 % (37.0-53.0); Hemoglobin 9.3 g/dL (13.5-17.5); IMMATURE GRAN ABSOLUTE AUTO 0.02 K/mm3 (0.00-0.10); IMMATURE GRAN PERCENT AUTO 1 % (0-1); LYMPHOCYTES ABSOLUTE AUTO 1.08 K/mm3 (0.84-5.20); LYMPHOCYTES PERCENT AUTO 25 % (21-46); MONOCYTES ABSOLUTE AUTO 0.43 K/mm3 (0.16-1.47); MONOCYTES PERCENT AUTO 10 % (4-13); Mean Corpuscular HGB 30.7 pg (26.0-34.0); Mean Corpuscular HGB Conc 32.7 g/dL (31.5-36.5); Mean Corpuscular Volume 94 fL (80-100); Mean Platelet Volume 9.4 fL (9.1-12.4); NEUTROPHILS ABSOLUTE AUTO 2.54 K/mm3 (1.96-9.15); NEUTROPHILS PERCENT AUTO 59 % (41-73); Platelet Count 232 K/mm3 (150-400); RDW Coefficient Variation 18.3 % (11.7-14.2); RDW Standard Deviation 63.7 fL (35.1-46.3); Red Blood Cell Count 3.03 M/mm3 (4.30-5.90); White Blood Cell Count 4.33 K/mm3 (4.00-11.30)
[2022-06-09 05:37] LABS: Albumin, Blood 3.5 g/dL (3.4-5.0); Albumin/Globulin Ratio 0.9 (0.8-1.8); Bilirubin, Total 0.2 mg/dL (0.1-1.0); Bun/Creatinine Ratio 23.8 (12.0-20.0); Calcium, Blood 8.9 mg/dL (8.5-10.1); Creatinine, Blood 1.01 mg/dL (0.60-1.20); Globulin, Blood 3.9 g/dL (2.2-4.0); Potassium, Blood 4.9 mmol/L (3.5-5.5); Total Protein, Blood 7.4 g/dL (6.4-8.2)
--- NOTE | 2022-06-09 06:00 | NUR ---
PT PAINFUL AT BEGINING OF NIGHT, OXYCODONE RESTARTED FROM HOME MEDS "THATS NOT ENOUGH, I NEED MORE THAN THAT." AFTER TAKING OXY PT SLEPT MOST OF NIGHT. REMEDICATED THIS AM FOR PAIN.
[2022-06-09 07:37] VITALS: BP 89/56
--- NOTE | 2022-06-09 07:44 | NUR ---
PHYSICIAN CONTACT DR. ALVAREZ NOTIFED OF BP OF 89/56. DR. ALVAREZ VERBALIZED SHE WILL BE ORDERING MIDODRINE.
[2022-06-09 10:19] VITALS: BP 128/60
[2022-06-09 13:30] VITALS: BP 103/67
[2022-06-09 15:46] VITALS: BP 107/79
--- NOTE | 2022-06-09 16:31 | NUR ---
TRANSFER TO DAY SURGERY.
--- NOTE | 2022-06-09 18:14 | NUR ---
SHIFT SUMMARY PT CURRENTLY IN DAY SURGERY DEPARTMENT FOR R 3RD TOE AMPUTATION. NPO ALL SHIFT IN PREP FOR THE PROCEDURE. HYPOTENSIVE THIS AM. DR. ALVAREZ NOTIFIED AND MIDODRINE STARTED TODAY. AM LISINOPRIL HELD. IV REPLACED PRIOR TO SURERY. NO OTHER ACUTE CHANGES IN ASSESSMENT PRIOR TO LEAVING FOR SURGERY.
--- NOTE | 2022-06-09 18:30 | NUR ---
ANESTHESIOLOGIST HAS BEEN DELAYED IN AN EMERGENT CASE. THIS SURGERY WILL BE RESCHEDULED PER DR SNIDER. CULLET CRUSHER AND WASHERISAMAR ARCHIBALD TAKING PT BACK TO HIS ROOM ON MED FLOOR.
[2022-06-09 19:54] VITALS: BP 106/69
[2022-06-10 03:18] VITALS: BP 113/68
[2022-06-10 05:01] LABS: Hematocrit 30.3 % (37.0-53.0); Hemoglobin 9.9 g/dL (13.5-17.5); Mean Corpuscular HGB 30.8 pg (26.0-34.0); Mean Corpuscular HGB Conc 32.7 g/dL (31.5-36.5); Mean Corpuscular Volume 94 fL (80-100); Mean Platelet Volume 9.4 fL (9.1-12.4); Platelet Count 235 K/mm3 (150-400); RDW Coefficient Variation 18.4 % (11.7-14.2); RDW Standard Deviation 64.1 fL (35.1-46.3); Red Blood Cell Count 3.21 M/mm3 (4.30-5.90); White Blood Cell Count 4.57 K/mm3 (4.00-11.30)
--- NOTE | 2022-06-10 05:35 | NUR ---
SHIFT SUMMARY 66 YR M ADMITTED ON 06/08/22 FOR HYPONATREMIA. FULL CODE. NO ACUTE CHANGES THIS SHIFT. PT WAS SCHEDULED FOR AMPUTATION OF THE RIGHT THIRD TOE YESTERDAY BUT ULTIMATELY THE SURGERY WAS NOT DONE. THE PT EXPRESSED FRUSTRATION OVER THIS HE IS ANXIOUS TO HAVE THE SURGERY DONE. FOR THE MOST PART HE IS PLEASANT BUT IS INSISTING ON AN ANSWER TO WHEN THE SURGERY WILL BE DONE AND THIS HAS NOT BEEN ABLE TO BE ANSWERED FOR HIM AT THIS POINT.
[2022-06-10 05:52] LABS: Thyroid Stimulating Hormone 2.76 uIU/mL (0.360-4.800)
[2022-06-10 05:53] LABS: Albumin, Blood 3.7 g/dL (3.4-5.0); Albumin/Globulin Ratio 0.9 (0.8-1.8); Bilirubin, Total 0.2 mg/dL (0.1-1.0); Calcium, Blood 9.1 mg/dL (8.5-10.1); Creatinine, Blood 0.68 mg/dL (0.60-1.20); Globulin, Blood 3.9 g/dL (2.2-4.0); Potassium, Blood 4.4 mmol/L (3.5-5.5); Total Protein, Blood 7.6 g/dL (6.4-8.2)
[2022-06-10 07:16] VITALS: BP 114/72
[2022-06-10 15:52] VITALS: BP 100/57
--- NOTE | 2022-06-10 16:43 | NUR ---
PATIENT A/OX4, UP INDEPENDENTLY IN ROOM. VSS, ON RA. PLAN IS FOR AMPUTATION OF R 3RD TOE TOMORROW. DRESSING TO R FOOT CHANGED TODAY. PATIENT TOLERATING DIET. REPORTS R FOOT PAIN BUT STATES THAT THE PAIN MEDICATION ORDERED DOES NOT WORK. NO NEW CONCERNS THIS SHIFT.
[2022-06-10 19:40] VITALS: BP 109/59
[2022-06-11] VITALS (11 sets, daily range): BP systolic 74–131; BP diastolic 52–86
--- NOTE | 2022-06-11 05:00 | NUR ---
SHIFT SUMMARY 66 YR M ADMITTED ON 06/08/22 FOR AMPUTATION OF RIGHT MIDDLE TOE. FULL CODE. NO ACUTE CHANGES THIS SHIFT. PT IS ANXIOUS FOR SURGERY AND IS REALLY HOPING IT WILL HAPPEN TODAY. HE HAS BEEN NPO SINCE MIDNIGHT. HE STATES THAT HIS TOE HURTS ALL THE TIME AND PAIN MEDS ARE NOT EFFECTIVE.
[2022-06-11 07:53] LABS: Hematocrit 28.6 % (37.0-53.0); Hemoglobin 9.7 g/dL (13.5-17.5); Mean Corpuscular HGB 31.8 pg (26.0-34.0); Mean Corpuscular HGB Conc 33.9 g/dL (31.5-36.5); Mean Corpuscular Volume 94 fL (80-100); Mean Platelet Volume 9.4 fL (9.1-12.4); Platelet Count 224 K/mm3 (150-400); RDW Coefficient Variation 18.2 % (11.7-14.2); Red Blood Cell Count 3.05 M/mm3 (4.30-5.90)
[2022-06-11 08:07] LABS: Albumin, Blood 3.6 g/dL (3.4-5.0); Bilirubin, Total 0.2 mg/dL (0.1-1.0); Bun/Creatinine Ratio 38.8 (12.0-20.0); Calcium, Blood 9.2 mg/dL (8.5-10.1); Creatinine, Blood 0.67 mg/dL (0.60-1.20); Globulin, Blood 3.7 g/dL (2.2-4.0); Potassium, Blood 4.4 mmol/L (3.5-5.5); Total Protein, Blood 7.3 g/dL (6.4-8.2)
--- NOTE | 2022-06-11 13:44 | NUR ---
PT HAS A 20G TO RIGHT FOREARM, FLUSHES AND RUNS WELL TO GRAVITY, OPSITE CHANGED
--- NOTE | 2022-06-11 15:29 | NUR ---
PATIENT ARRIVED BACK FROM DAY SURGERY S/P R 3RD TOE AMPUTATION. REPORT RECEIVED FROM ISAMAR IRELAND. B/P 86/[address] ALVAREZ NOTIFIED OF PRESSURES. MIDODRINE ORDERED X1 TO TREAT. PATIENT DENIES ANY NAUSEA. 2LO2 TO MAINTAIN SATS. DENIES ANY PAIN CURRENTLY. DRESSING TO R FOOT REMAINS C/D/I.
--- NOTE | 2022-06-12 04:17 | NUR ---
SHIFT SUMMARY 66 YR M ADMITTED ON 06/08/22 FOR AMPUTATION OF THIRD TOE ON THE RIGHT FOOT. FULL CODE. PT IS DOING WELL POST SURGERY. HE C/O PAIN AT SURGERY SIGHT BUT STATES THAT IT IS BETTER THAN WHEN THE TOE WAS THERE. PAIN BEING CONTROLLED W/ REGULAR DOSING OF PAIN MEDS PER EMAR. NO C/O NAUSEA THIS SHIFT.
[2022-06-12 05:40] LABS: Hematocrit 28.4 % (37.0-53.0); Hemoglobin 9.8 g/dL (13.5-17.5); Mean Corpuscular HGB 32.1 pg (26.0-34.0); Mean Corpuscular HGB Conc 34.5 g/dL (31.5-36.5); Mean Corpuscular Volume 93 fL (80-100); Mean Platelet Volume 9.6 fL (9.1-12.4); Platelet Count 235 K/mm3 (150-400); RDW Standard Deviation 61.1 fL (35.1-46.3); Red Blood Cell Count 3.05 M/mm3 (4.30-5.90); White Blood Cell Count 6.43 K/mm3 (4.00-11.30)
[2022-06-12 05:50] LABS: Albumin, Blood 3.4 g/dL (3.4-5.0); Albumin/Globulin Ratio 0.8 (0.8-1.8); Bilirubin, Total 0.2 mg/dL (0.1-1.0); Bun/Creatinine Ratio 40.6 (12.0-20.0); Creatinine, Blood 0.62 mg/dL (0.60-1.20); Potassium, Blood 4.9 mmol/L (3.5-5.5); Total Protein, Blood 7.4 g/dL (6.4-8.2)
[2022-06-12 07:41] VITALS: BP 104/64
[2022-06-12 14:58] VITALS: BP 110/59
--- NOTE | 2022-06-12 18:11 | NUR ---
SHIFT SUMMARY Patient AOx4, pleasant. Calls appropriately. Complained of right foot pain, stated pain radiates up foot. Toe amputated on right foot yesterday. Dressing CDI. Oxycodone & Tylenol effective for pain control. IV ABX & Solumedrol administred. Vitals stable. Will continue plan of care.
[2022-06-12 19:37] VITALS: BP 128/64
[2022-06-13 03:58] VITALS: BP 137/118
[2022-06-13 05:11] LABS: BASOPHILS PERCENT AUTO 0 % (0-2); EOSINOPHILS PERCENT AUTO 0 % (0-6); Hematocrit 29.3 % (37.0-53.0); Hemoglobin 9.6 g/dL (13.5-17.5); IMMATURE GRAN ABSOLUTE AUTO 0.03 K/mm3 (0.00-0.10); IMMATURE GRAN PERCENT AUTO 1 % (0-1); LYMPHOCYTES ABSOLUTE AUTO 0.64 K/mm3 (0.84-5.20); LYMPHOCYTES PERCENT AUTO 13 % (21-46); MONOCYTES ABSOLUTE AUTO 0.06 K/mm3 (0.16-1.47); MONOCYTES PERCENT AUTO 1 % (4-13); Mean Corpuscular HGB 30.9 pg (26.0-34.0); Mean Corpuscular HGB Conc 32.8 g/dL (31.5-36.5); Mean Corpuscular Volume 94 fL (80-100); Mean Platelet Volume 9.4 fL (9.1-12.4); NEUTROPHILS ABSOLUTE AUTO 4.18 K/mm3 (1.96-9.15); NEUTROPHILS PERCENT AUTO 85 % (41-73); Platelet Count 227 K/mm3 (150-400); RDW Coefficient Variation 17.8 % (11.7-14.2); Red Blood Cell Count 3.11 M/mm3 (4.30-5.90); White Blood Cell Count 4.91 K/mm3 (4.00-11.30)
[2022-06-13 05:43] LABS: Albumin, Blood 3.5 g/dL (3.4-5.0); Albumin/Globulin Ratio 0.9 (0.8-1.8); Bilirubin, Total 0.2 mg/dL (0.1-1.0); Bun/Creatinine Ratio 40.2 (12.0-20.0); Calcium, Blood 9.2 mg/dL (8.5-10.1); Creatinine, Blood 0.6 mg/dL (0.60-1.20); Globulin, Blood 3.8 g/dL (2.2-4.0); Total Protein, Blood 7.3 g/dL (6.4-8.2)
--- NOTE | 2022-06-13 06:23 | NUR ---
PATIENT REMAINED ALERT AND ORIENTED X4 THIS SHIFT, COOPERATIVE WITH CARE. FOOT/TOE PAIN TREATED 1X PER MAR. PATIENT IND TO BSC, CALLS TO MAKE NEEDS KNOWN, VSS. NO OTHER ISSUES TO REPORT OVERNIGHT.
[2022-06-13 07:52] VITALS: BP 121/65
--- NOTE | 2022-06-13 11:25 | NUR ---
Initial palliative care consult: Zainab is a 66 year old gentleman who had a gangrenous right 3rd toe removed on 06/11/22. He has a history of CKD, polycystic kidneys, HTN, COPD, paroxsimal a-fib, gout. [facility] He normally ambulates with a cane. He is laying in bed during the visit. He reports he has a pain level of 0/10 at this time. He states he is having a gout flare in his big toes. He normally takes a routine medication for gout. Both allopurinol and colchicine are listed on his home medication list. He is not currently taking either while in the hospital. Will plan to speak with Dr. Manzano about an anti-gout medication. He reports some diarrhea which he attritubes to overeating yesterday. He is currently receiving antibiotics and a probiotic per his EMAR. He has no other complaints at this time. Visit cut short as PT came in and wanted to mobilize pt. Will plan to return to discuss AD/POLST with Zainab at a better time. He reports he is unsure how many more days he will have to stay in the hospital. PC to follow.
[2022-06-13 14:52] VITALS: BP 121/52
--- NOTE | 2022-06-13 16:26 | NUR ---
Pt remains alert and oriented x3 throughout this shift. Pain controlled today, no prn meds requested. VSS, remains on RA. Voiding per urinal. Dressing to right foot CDI. No wound care or scd to RLE per Dr. Ballard. Ambulated with walker and PT today. Partial weight bearing to right heel as ordered. No further needs verbalized or id. Will continue to monitor
--- NOTE | 2022-06-13 17:05 | NUR ---
Returned to Zainab's room this afternoon to finish conversation about AD and POLST form. Zainab states he does have a sister out of area but is unsure if he would want to burden her with making medical decisions for him. He currently does not have a POLST or AD. He states he has no one locally who could make decisions for him. Discussed option of completing an AD/POLST as this will allow him to express his wishes in the event he is unable to do so. He is in agreement that he should consider completing these forms. He would like to review the forms. Will plan to check in with Zainab tomorrow to assist with filling out the forms if he wishes to do so. Zainab verbalized concern over his car being parked in an ER parking only space. He drove himself to the hospital and will plan [facility]. This scientific writer walked out to the parking lot and saw that his car (red 4 door saturn) is still parked in the ER parking space. Spoke with security who state that they will not tow his vehicle as he is an inpatient. Updated Zainab that his car is where he left it and will not be towed. He verbalized his appreciation. PC to follow up re: AD/POLST.
[2022-06-13 19:31] VITALS: BP 104/56
[2022-06-14 05:18] LABS: Hemoglobin 9.8 g/dL (13.5-17.5); Mean Corpuscular HGB 31.9 pg (26.0-34.0); Mean Corpuscular HGB Conc 33.8 g/dL (31.5-36.5); Mean Corpuscular Volume 95 fL (80-100); Platelet Count 230 K/mm3 (150-400); RDW Standard Deviation 62.4 fL (35.1-46.3); Red Blood Cell Count 3.07 M/mm3 (4.30-5.90); White Blood Cell Count 7.03 K/mm3 (4.00-11.30)
[2022-06-14 05:38] VITALS: BP 116/70
[2022-06-14 05:45] LABS: Albumin, Blood 3.3 g/dL (3.4-5.0); Albumin/Globulin Ratio 0.9 (0.8-1.8); Bilirubin, Total 0.2 mg/dL (0.1-1.0); Bun/Creatinine Ratio 39.9 (12.0-20.0); Calcium, Blood 8.9 mg/dL (8.5-10.1); Creatinine, Blood 0.6 mg/dL (0.60-1.20); Globulin, Blood 3.5 g/dL (2.2-4.0); Percent Saturation 16.2 % (20.0-50.0); Potassium, Blood 3.9 mmol/L (3.5-5.5); Total Protein, Blood 6.8 g/dL (6.4-8.2); Uric Acid, Blood 8.3 mg/dL (3.5-7.2)
--- NOTE | 2022-06-14 06:35 | NUR ---
PATIENT IS ALERT AND OREINTED X4, COOPERATIVE WITH CARE BUT DID BECOME VERALLY ABUSIVE WITH AID AND WIRE TRANSFER CLERK. WAS FRUISTRATED OVER DIET CHOICES. VSS, BANDAGE CDI, UP TO CAMODE IND. WILL CONT TO MONITOR.
[2022-06-14 08:49] VITALS: BP 99/62
[2022-06-14] MEDS ORDERED: Nicoderm Cq1 EACH TOP (14:07)
[2022-06-14] MEDS ORDERED: FLUDROCORTISON0.1 M1 PO (14:07)
[2022-06-14] MEDS ORDERED: AMOCLA875 PO (14:07)
[2022-06-14 14:19] VITALS: BP 104/64
--- NOTE | 2022-06-14 14:30 | NUR ---
Attempted to visit with Zainab re: AD and POLST form follow up. Zainab's room is dark, he has the covers pulled up to his eyes laying on his left side. He reports that he has had nausea since he ate his lunch and he states he is not feeling up to discussing AD and POLST at this time. Notified bedside nursing of nausea.
--- NOTE | 2022-06-14 19:35 | NUR ---
SHIFT SUMMARY PT A&OX4, VSS/RA, GENE PO, VOIDING, AMB INDEPENDENTLY W/FWW, DENIES NEED FOR PAIN MEDICATION, IV DC'D. DC INS PROVIDED. PT REP UNDERSTANDING THOSE INSTRUCTIONS INCLUDING FU WITH DR SNIDER W/N 2 DAYS/ WILL CHANGE DRESSING, PICKING UP PRESCRIPTIONS AT [facility], WEARING POSTOP SHOE. LEFT FLOOR VIA WC, TO GO HOME WITH POSSESSIONS INCLUDING DC PACKET AND NEW POSTOP SHOE ON RIGHT FOOT.
== END 2022-06-14 19:14 | disposition home or self-care (01) | DRG 504 ==
LOC: ER 09:01 → MEDS 15:36
PROVIDERS: Emergency Medicine; Internal Medicine; Physician Assistant; Podiatrist Foot & Ankle Surgery; ADMIT Internal Medicine
PROC: 0Y6T0Z0 Detachment at Right 3rd Toe, Complete, Open Approach (ICD-10-PCS; principal; 2022-06-11 14:00)
DX: M86.171 Other acute osteomyelitis, right ankle and foot (principal); E87.1 Hypo-osmolality and hyponatremia; I96 Gangrene, not elsewhere classified; E87.20 Acidosis, unspecified; I13.0 Hypertensive heart and chronic kidney disease with heart failure and stage 1 through stage 4 chronic kidney disease, or unspecified chronic kidney disease; I50.30 Unspecified diastolic (congestive) heart failure; Q61.3 Polycystic kidney, unspecified; D63.1 Anemia in chronic kidney disease; I48.0 Paroxysmal atrial fibrillation; J44.9 Chronic obstructive pulmonary disease, unspecified; I95.9 Hypotension, unspecified; M10.9 Gout, unspecified; R73.9 Hyperglycemia, unspecified; N18.9 Chronic kidney disease, unspecified; F17.200 Nicotine dependence, unspecified, uncomplicated; Z59.00 Homelessness unspecified; Z79.891 Long term (current) use of opiate analgesic; Z79.2 Long term (current) use of antibiotics; Z86.73 Personal history of transient ischemic attack (TIA), and cerebral infarction without residual deficits; Z86.79 Personal history of other diseases of the circulatory system; Z79.899 Other long term (current) drug therapy
CPT/HCPCS: 36415; 71045; 73660; 80053; 80400; 82533; 82728; 82803; 82947; 83540; 83550; 83605; 83880; 83930; 83935; 84295; 84300; 84443; 84550; 85025; 85027; 85610; 87071; 87075; 87076; 87185; 87205; 87507; 88305; 88311; 94640; 94664; 94760; 96374; 96375; 97116; 97162; 99285-25; A9270; J0690; J0696; J0834; J1100; J1940; J2370; J2405; J2704; J2930; J3010; J7120

== ENCOUNTER → 2022-07-20 | Outpatient (CLI) | payer OTHER ==
[~2022-07-20] MED LIST changes: +ALLO100 PO; +AMOCLA875 PO; +BACTRIM DS TAB1 EAC6 PO; +CHLO25B PO; +CLOP75 PO; +COLCHICINE0.6 MG PO; +FLUDROCORTISON0.1 M1 PO; +FLUT1DIS8 INH; +LOSA25 PO; +METO100ER PO; +Nicoderm Cq1 EACH TOP
[2022-07-20 16:43] LABS: BASOPHILS ABSOLUTE AUTO 0.02 K/mm3 (0.00-0.23); BASOPHILS PERCENT AUTO 0 % (0-2); EOSINOPHILS ABSOLUTE AUTO 0.06 K/mm3 (0.00-0.68); EOSINOPHILS PERCENT AUTO 1 % (0-6); Hematocrit 35.7 % (37.0-53.0); Hemoglobin 11.6 g/dL (13.5-17.5); IMMATURE GRAN ABSOLUTE AUTO 0.01 K/mm3 (0.00-0.10); IMMATURE GRAN PERCENT AUTO 0 % (0-1); LYMPHOCYTES ABSOLUTE AUTO 1.33 K/mm3 (0.84-5.20); LYMPHOCYTES PERCENT AUTO 22 % (21-46); MONOCYTES ABSOLUTE AUTO 0.35 K/mm3 (0.16-1.47); MONOCYTES PERCENT AUTO 6 % (4-13); Mean Corpuscular HGB 31.3 pg (26.0-34.0); Mean Corpuscular HGB Conc 32.5 g/dL (31.5-36.5); Mean Corpuscular Volume 96 fL (80-100); Mean Platelet Volume 10.1 fL (9.1-12.4); NEUTROPHILS ABSOLUTE AUTO 4.26 K/mm3 (1.96-9.15); NEUTROPHILS PERCENT AUTO 71 % (41-73); Platelet Count 252 K/mm3 (150-400); RDW Coefficient Variation 14.6 % (11.7-14.2); RDW Standard Deviation 51.3 fL (35.1-46.3); Red Blood Cell Count 3.71 M/mm3 (4.30-5.90); White Blood Cell Count 6.03 K/mm3 (4.00-11.30)
[2022-07-20 17:13] LABS: Bilirubin, Total 0.6 mg/dL (0.1-1.0); Creatinine, Blood 0.77 mg/dL (0.60-1.20); Globulin, Blood 4.2 g/dL (2.2-4.0); Potassium, Blood 3.9 mmol/L (3.5-5.5); Total Protein, Blood 8.2 g/dL (6.4-8.2); Uric Acid, Blood 6.9 mg/dL (3.5-7.2)
== END | disposition home or self-care (01) ==
LOC: LAB 13:00 → LAB SHORT 13:00
PROVIDERS: Nurse Practitioner Family
DX: I10 Essential (primary) hypertension (principal); M10.9 Gout, unspecified
CPT/HCPCS: 80053; 84550; 85025

== ENCOUNTER 2022-10-13 17:19 | Inpatient (IN) | payer OTHER ==
[~2022-10-13 17:19] MED LIST changes: +ASPI81CH PO; -LISI20 PO; +Prinivil10 MG PO
[2022-10-13 18:14] LABS: BASOPHILS ABSOLUTE AUTO 0.03 K/mm3 (0.00-0.23); BASOPHILS PERCENT AUTO 1 % (0-2); EOSINOPHILS ABSOLUTE AUTO 0.16 K/mm3 (0.00-0.68); EOSINOPHILS PERCENT AUTO 3 % (0-6); Hematocrit 30.5 % (37.0-53.0); Hemoglobin 9.9 g/dL (13.5-17.5); IMMATURE GRAN ABSOLUTE AUTO 0.02 K/mm3 (0.00-0.10); IMMATURE GRAN PERCENT AUTO 0 % (0-1); LYMPHOCYTES ABSOLUTE AUTO 1.04 K/mm3 (0.84-5.20); LYMPHOCYTES PERCENT AUTO 21 % (21-46); MONOCYTES ABSOLUTE AUTO 0.52 K/mm3 (0.16-1.47); MONOCYTES PERCENT AUTO 10 % (4-13); Mean Corpuscular HGB 31.5 pg (26.0-34.0); Mean Corpuscular HGB Conc 32.5 g/dL (31.5-36.5); Mean Corpuscular Volume 97 fL (80-100); Mean Platelet Volume 10.1 fL (9.1-12.4); NEUTROPHILS ABSOLUTE AUTO 3.25 K/mm3 (1.96-9.15); NEUTROPHILS PERCENT AUTO 65 % (41-73); Platelet Count 181 K/mm3 (150-400); RDW Coefficient Variation 15.9 % (11.7-14.2); RDW Standard Deviation 57.4 fL (35.1-46.3); Red Blood Cell Count 3.14 M/mm3 (4.30-5.90); White Blood Cell Count 5.02 K/mm3 (4.00-11.30)
[2022-10-13] MEDS ORDERED: INCRUSE ELPT62.5MCG INH (18:25)
[2022-10-13 20:10] LABS: Albumin, Blood 3.4 g/dL (3.4-5.0); Bilirubin, Total 0.1 mg/dL (0.1-1.0); Bun/Creatinine Ratio 16.7 (12.0-20.0); Calcium, Blood 8.2 mg/dL (8.5-10.1); Creatinine, Blood 0.72 mg/dL (0.60-1.20); Globulin, Blood 3.3 g/dL (2.2-4.0); Potassium, Blood 3.8 mmol/L (3.5-5.5); Total Protein, Blood 6.7 g/dL (6.4-8.2)
--- NOTE | 2022-10-13 22:30 | NUR ---
PT CHART REVEIED FOR ADMISSION
[2022-10-13 23:48] VITALS: BP 141/75
[2022-10-14] VITALS (7 sets, daily range): BP systolic 103–147; BP diastolic 60–117
[2022-10-14 06:27] LABS: Hematocrit 31.4 % (37.0-53.0); Hemoglobin 10.4 g/dL (13.5-17.5); Mean Corpuscular HGB 31.7 pg (26.0-34.0); Mean Corpuscular HGB Conc 33.1 g/dL (31.5-36.5); Mean Corpuscular Volume 96 fL (80-100); Mean Platelet Volume 10.2 fL (9.1-12.4); Platelet Count 192 K/mm3 (150-400); RDW Coefficient Variation 15.7 % (11.7-14.2); RDW Standard Deviation 55.5 fL (35.1-46.3); Red Blood Cell Count 3.28 M/mm3 (4.30-5.90); White Blood Cell Count 4.53 K/mm3 (4.00-11.30)
--- NOTE | 2022-10-14 06:30 | NUR ---
SHIFT SUMMARY A/OX4, SBA WITH CANE FOR TRANSFERS. TELE SR 80-90S, DENIES CHEST PAIN/PRESSURE AT THIS TIME. OUTPATIENT CABG SCHEDULED IN [place] ON 11/06/22 PER PT. SPO2 >92% ON RA. VSS, NO ACUTE CHANGES AT THIS TIME. BED IN LOWEST POSITION WITH CALL LIGHT IN REACH. WILL CONTINUE TO MONITOR AND REPORT TO ONCOMING RN.
[2022-10-14 06:59] LABS: Calcium, Blood 8.4 mg/dL (8.5-10.1); Creatinine, Blood 0.67 mg/dL (0.60-1.20); Magnesium, Blood 1.3 mg/dL (1.6-2.4); Potassium, Blood 3.4 mmol/L (3.5-5.5)
--- NOTE | 2022-10-14 09:09 | NUR ---
PATIENT C/O CHEST PAIN/PRESSURE 4/10 CONSTANT. PATIENT IS SITTING UP EATING BREAKFAST AND CHATTING AND OTHERWISE APPEARS IN NO APPARENT DISTRESS, O2 SAT 94% ON ROOM AIR. SINUS RYTHM AT 97 WITH PVCS. MAG RUNNING, POSTASSIUM GIVEN. CALL PLACED TO DR SUH. LMOM.
--- NOTE | 2022-10-14 09:12 | NUR ---
ORDER RECIEVED FROM DR SUH FOR NITROGYLCERIN 0.4MG SL
[2022-10-14] MEDS ORDERED: CHLO25B PO (16:36)
[2022-10-14] MEDS ORDERED: DULERA 200 MCG-13 GM INH (16:39)
[2022-10-14] MEDS ORDERED: LOSARTAN POTASS25 M2 PO (17:12)
[2022-10-14] MEDS ORDERED: METO50 PO (17:15)
--- NOTE | 2022-10-14 18:29 | NUR ---
SHIFT SUMMARY PATIENT WITH CHEST PAIN THROUGHOUT DAY RANGING FROM 1-4/10 PAIN LEVEL OF PRESSURE AND FEELING PALPITATIONS. HE REPORTS DECREASED CHEST PRESSURE AND INTENSITY WITH OXYCODONE DOWN TO 2/10 BUT IS STILL FEELING THE PALPITATIONS. HE GETS UP TO BATHROOM 1P SBA WITH CANE. BED IN LOW POSITION, BED ALARM ON, CALL LIGHT IN REACH. PATIENT DOES NOT CALL ALWAYS AND TRIED TO GET UP ON HIS OWN.
--- NOTE | 2022-10-15 01:41 | NUR ---
NURSE NOTE AWAKE AT SHIFT COMMENCE. INSTRUCTED TO LET NURSE KNOW IF GETTING OUT OF BED DUE TO POTENTIAL FALLS. PT AGITATED BUT AGREED TO. CALL LIGHT IN REACH. RECEIVED FIRE IGNITION TEACHING EARLIER. USING CALL LIGHT HE WAS INSTRUCTED. USES CANE WITH AMBULATION. RADHA CONTINUE TO MONITOR
[2022-10-15 04:55] VITALS: BP 127/73
--- NOTE | 2022-10-15 06:02 | NUR ---
BREASTER SUMMARY VSS. MED TELE SR. AT SHIFT START, VOICED SOME CHEST PRESSURE, BUT HAS NOT C/O CP OR PRESSURE SINCE. UP TO BATHROOM WITH CANE A FEW TIMES, COMPLIED WITH STAFF REQUEST TO USE CALL LIGHT IN CASE HE FELT VERTIGO. NO NOTED ISSUES. HAS BEEN RESTING QUIETLY WITH EFW INTERRUPTIONS SINCE. CALL LIGHT IN REACH. WILL CONTINUE TO MONITOR.
[2022-10-15 07:44] VITALS: BP 122/68
[2022-10-15 15:09] VITALS: BP 138/64
--- NOTE | 2022-10-15 16:48 | NUR ---
SHIFT SUMMARY PT IS A&OX4, AND WAS VERY ANXIOUS/ANGRY THIS MORNING. HE WAS MAKING COMMENTS ABOUT LEAVING AMA BECAUSE HE FELT THE HOSPITAL WAS DOING NOTHING FOR HIM. ALTHOUGH, HE DID STATE THAT HE IS FEELING ALOT BETTER TODAY. DR. SUH ROUNDED ON THE PT AND HAD A CONVERSATION ABOUT THE THINGS WE ARE DOING. PT OPTED TO STAY ONE MORE NIGHT AND RECEIVE OUR CARE. SINCE DR. SUH LEFT THIS MORNING, HE HAS BEEN VERY COOPERATIVE AND FRIENDLY TO STAFF. ON TELEMETRY THE PT IS SR 70 S W/ BBB, AND PVC S. HE DENIES SOB AND HAS BEEN ON RA ALL DAY. PT SHOWERED AND HAD HIS DRESSING ON HIS RIGHT TOE CHANGED. NO ACUTE EVENTS. FIRE IGNITION RISK HAS BEEN ASSESSED AND EDUCATION WAS PROVIDED.
--- NOTE | 2022-10-15 17:16 | NUR ---
CALLED DR. SUH AND LET HIM KNOW ABOUT NEW TELEMETRY EVENTS. AT 1708 PT HAD A 7 BEAT RUN OF VTACH. ASYMPTOMATIC. AT 1635 PT HAS A SHORT BUNDLE FLIP. ASYMPTOMATIC. NO NEW ORDERS AT THIS TIME.
[2022-10-15 20:02] VITALS: BP 132/67
--- NOTE | 2022-10-16 00:15 | NUR ---
NURSE NOTE VSS. LESS VERBALLY ANTAGIONISTIC THAN YESETERDAY. MORE COOPERATIVE. DENIED CHEST PAIN. DISCUSSED FUTURE PLANS OF HEART SURGERY IN HOSPITAL IN [place]. UP TO BATHROOM WITH CANE AD ZUHAIR. HAS BEEN RESTING QUIETLY WITH FEW INTERRUPTIONS. RECEIVED FIRE IGNITION TEACHING EARLIER. CALL LIGHT IN REACH.
--- NOTE | 2022-10-16 03:28 | NUR ---
BLENDING TANK HELPER SUMMARY VSS. NO C/O CHEST PAIN OR PRESSURE THIS SIFT. VOICED AT SHIFT COMMENCE THAT HE WAS FEELING BETTER AND LOOKED FORWARD TO HAVING SURGERY IN [place] LATER THIS MONTH. HAS BEEN RESTING QUIETLY WITH FEW INTERRUPTIONS. UP AD ZUHAIR WITH CANE. CALL LIGHT IN REACH. WILL CONTINUE TO MONITOR
[2022-10-16 04:23] VITALS: BP 132/75
[2022-10-16 05:05] LABS: Hematocrit 31.4 % (37.0-53.0); Hemoglobin 10.2 g/dL (13.5-17.5); Mean Corpuscular HGB 30.9 pg (26.0-34.0); Mean Corpuscular HGB Conc 32.5 g/dL (31.5-36.5); Mean Corpuscular Volume 95 fL (80-100); Mean Platelet Volume 10.2 fL (9.1-12.4); Platelet Count 194 K/mm3 (150-400); RDW Coefficient Variation 15.5 % (11.7-14.2); RDW Standard Deviation 53.8 fL (35.1-46.3); White Blood Cell Count 4.31 K/mm3 (4.00-11.30)
[2022-10-16 05:30] LABS: Bun/Creatinine Ratio 33.6 (12.0-20.0); Calcium, Blood 8.9 mg/dL (8.5-10.1); Creatinine, Blood 0.68 mg/dL (0.60-1.20); Magnesium, Blood 1.6 mg/dL (1.6-2.4); Potassium, Blood 4.6 mmol/L (3.5-5.5)
[2022-10-16 07:17] VITALS: BP 138/73
[2022-10-16] MEDS ORDERED: FURO40 PO (11:38)
[2022-10-16] MEDS ORDERED: ASPI81CH PO (11:38)
[2022-10-16] MEDS ORDERED: NITR.4SL SL (11:39)
[2022-10-16] MEDS ORDERED: Isosorbide Mono30 MG PO (11:39)
--- NOTE | 2022-10-16 15:48 | NUR ---
PT DISCHARGED HOME. DC INSTRUCTIONS AND EDUCATION MATERIAL EXPLAINED TO PT. IV AND TELE DC'D. PT ABLE TO DRESS INDEPENDENTLY. AUTOMOBILE OR TRUCK RENTAL DISPATCHER SPOKE WITH PT ABOUT RESOURCES AND HOUSING AND GAVE PT HANDOUTS TO TAKE HOME. PT CALLED FRIEND FOR TRANSPORTATION. PT HELPED TO GATHER BELONGINGS. PT VERBALZIED NEEDING TO ST0P AT SECURITY TO TOBACCO SPRAYER CIGARETTES THAT WHERE LOCKED UP. PT TAKEN BY WHEELCHAIR TO WAITING VEHICLE.
== END 2022-10-16 15:10 | disposition home or self-care (01) | DRG 302 ==
LOC: ER 17:19 → MEDS 17:20 → ENPENDDIS 10-16 10:42 → MEDS 10-16 15:10
PROVIDERS: Emergency Medicine; Internal Medicine; Nurse Practitioner Acute Care; ADMIT Internal Medicine
DX: I25.119 Atherosclerotic heart disease of native coronary artery with unspecified angina pectoris (principal); I50.33 Acute on chronic diastolic (congestive) heart failure; E87.1 Hypo-osmolality and hyponatremia; R07.9 Chest pain, unspecified; E78.5 Hyperlipidemia, unspecified; I11.0 Hypertensive heart disease with heart failure; E83.42 Hypomagnesemia; J44.9 Chronic obstructive pulmonary disease, unspecified; M10.9 Gout, unspecified; I48.0 Paroxysmal atrial fibrillation; F17.210 Nicotine dependence, cigarettes, uncomplicated; Z98.890 Other specified postprocedural states; Z86.73 Personal history of transient ischemic attack (TIA), and cerebral infarction without residual deficits; Z89.421 Acquired absence of other right toe(s); Z79.899 Other long term (current) drug therapy; Z79.82 Long term (current) use of aspirin; Z79.02 Long term (current) use of antithrombotics/antiplatelets; Z59.01 Sheltered homelessness
CPT/HCPCS: 36415; 71046; 80048; 80053; 83735; 83880; 84484; 85025; 85027; 93005; 93010; 94640; 94664; 94760; 96365; 96372; 96374; 96375; 96376; 99285-25; A9270; G0378; J1650; J1940; J2270; J3475